=== PATIENT | female | born 1980 | race Caucasian/White ===

== ENCOUNTER 2016-09-15 13:35 | Emergency (ER) | payer OTHER ==
[2016-09-15 14:50] LABS: BASOPHIL 0.2 % (0-2); EOSINOPHIL 3.3 % (0-5); HCT 38.9 % (37.0-47.0); HGB 12.8 g/dl (12.5-16.0); LYMPHOCYTE 24.9 % (15-48); MCH 28.6 pg (25.0-31.0); MCHC 32.9 g/dL (32.0-36.0); MONOCYTE 7.8 % (0-12); MPV 9.4 fL (6.0-9.5); NEUTROPHIL 63.8 % (41-80); PLT 296 K/uL (150-400); RBC 4.47 M/uL (4.20-5.40); RDW 15.3 % (11.5-14.0); WBC 9.3 K/uL (4.0-10.5)
[2016-09-15 15:06] LABS: ALBUMIN 4.1 g/dL (3.5-5.0); BILIRUBIN - TOTAL 0.2 mg/dL (0.1-1.0); GLOBULIN (CALCULATION) 2.2 g/dL (2.2-4.2); POTASSIUM 4.2 mmol/L (3.5-5.1); TOTAL PROTEIN 6.3 g/dL (6.4-8.3)
[2016-09-15 15:12] LABS: BILIRUBIN NEGATIVE (NEGATIVE); BLOOD NEGATIVE Ery/uL (NEGATIVE); CLARITY CLEAR (CLEAR); COLOR YELLOW (YELLOW); GLUCOSE (U) NORMAL (NORMAL); KETONE (U) NEGATIVE (NEGATIVE); LEUKOCYTES TRACE Leu/uL (NEGATIVE); NITRITE NEGATIVE (NEGATIVE); PROTEIN NEGATIVE (NEGATIVE); SPECIFIC GRAVITY <=1.005 (1.001-1.030); UROBILINOGEN 0.2 mg/dL (0.2-1.0)
[2016-09-15 15:15] LABS: BACTERIA 1+; URINARY RBC RARE
[2016-09-15 15:17] LABS: AMPHETAMINES NEGATIVE (NEGATIVE); BENZODIAZEPINES POSITIVE (NEGATIVE); COCAINE NEGATIVE (NEGATIVE); MARIJUANA (THC) NEGATIVE (NEGATIVE); METHADONE NEGATIVE (NEGATIVE)
[2016-09-15 15:18] LABS: BARBITURATES NEGATIVE (NEGATIVE); TRICYCLIC ANTIDEPRESSANT POSITIVE (NEGATIVE)
== END 2016-09-15 15:43 | disposition home or self-care (01) ==
LOC: FER 13:35
PROVIDERS: Internal Medicine
DX: G40.409 Other generalized epilepsy and epileptic syndromes, not intractable, without status epilepticus (principal); F43.9 Reaction to severe stress, unspecified; F90.9 Attention-deficit hyperactivity disorder, unspecified type; F17.210 Nicotine dependence, cigarettes, uncomplicated; Z88.1 Allergy status to other antibiotic agents; Z88.2 Allergy status to sulfonamides; Z88.8 Allergy status to other drugs, medicaments and biological substances; Z91.041 Radiographic dye allergy status; Z91.09 Other allergy status, other than to drugs and biological substances
CPT/HCPCS: 36415; 80053; 80305; 81001; 85025; J1885; J2060

== ENCOUNTER 2020-10-19 14:53 | Emergency (ER) | payer OTHER ==
[~2020-10-19 14:53] MED LIST: KEFLEX250 MG PO; MACROBID100 MG PO
[2020-10-19] MEDS ORDERED: NAPROXEN500 MG PO (19:17)
[2020-10-19] MEDS ORDERED: FLEXERIL5 MG PO (19:17)
== END 2020-10-19 21:04 | disposition home or self-care (01) ==
LOC: FER 14:53
DX: S09.90XA Unspecified injury of head, initial encounter (principal); S46.911A Strain of unspecified muscle, fascia and tendon at shoulder and upper arm level, right arm, initial encounter; I10 Essential (primary) hypertension; J45.909 Unspecified asthma, uncomplicated; Z88.2 Allergy status to sulfonamides; Z88.8 Allergy status to other drugs, medicaments and biological substances; Z88.1 Allergy status to other antibiotic agents; W19.XXXA Unspecified fall, initial encounter; Y92.009 Unspecified place in unspecified non-institutional (private) residence as the place of occurrence of the external cause
CPT/HCPCS: 70450; 72125; 73030; 96372; J1100; J1885

== ENCOUNTER 2020-10-25 19:57 | Emergency (ER) | payer OTHER ==
[~2020-10-25 19:57] MED LIST changes: +FLEXERIL5 MG PO; +NAPROXEN500 MG PO
[2020-10-25 21:43] LABS: BASOPHIL 0.5 % (0-2); EOSINOPHIL 2.9 % (0-5); HCT 40.8 % (37.0-47.0); HGB 13.5 g/dl (12.5-16.0); MCH 28.1 pg (25.0-31.0); MCHC 33.1 g/dL (32.0-36.0); MCV 84.8 fL (78.0-100.0); MONOCYTE 8.4 % (0-12); MPV 9.5 fL (6.0-9.5); NEUTROPHIL 54.9 % (41-80); NRBC 0; PLT 326 K/uL (150-400); RBC 4.81 M/uL (4.20-5.40); WBC 11.3 K/uL (4.0-10.5)
[2020-10-25 21:52] LABS: ALBUMIN 3.6 g/dL (3.4-5.0); BILIRUBIN - TOTAL 0.2 mg/dL (0.2-1.0); BUN/CREAT RATIO (CALC) 15.3 RATIO; CREATININE 0.98 mg/dL (0.51-0.95); GLOBULIN (CALCULATION) 3.7 g/dL; MAGNESIUM 1.9 mg/dL (1.8-2.4); POTASSIUM 4.6 mmol/L (3.5-5.1); TOTAL PROTEIN 7.3 g/dL (6.4-8.2)
[2020-10-26] MEDS ORDERED: PERCOCET 5-3251 EACH PO (01:18)
== END 2020-10-26 01:30 | disposition home or self-care (01) ==
LOC: FER 19:57
PROVIDERS: Emergency Medicine Emergency Medical Services
DX: G40.409 Other generalized epilepsy and epileptic syndromes, not intractable, without status epilepticus (principal); M79.7 Fibromyalgia; F17.210 Nicotine dependence, cigarettes, uncomplicated; Z86.73 Personal history of transient ischemic attack (TIA), and cerebral infarction without residual deficits; Z85.9 Personal history of malignant neoplasm, unspecified; Z88.0 Allergy status to penicillin; Z88.2 Allergy status to sulfonamides; Z88.8 Allergy status to other drugs, medicaments and biological substances
CPT/HCPCS: 36415; 70450; 71045; 73030; 80053; 83735; 84484; 85025; 93005; J2060; J2270; J2405; J7030

== ENCOUNTER 2020-12-13 21:34 | Emergency (ER) | payer OTHER ==
[~2020-12-13 21:34] MED LIST changes: +PERCOCET 5-3251 EACH PO
[2020-12-13 23:04] LABS: BILIRUBIN NEGATIVE (NEGATIVE); BLOOD NEGATIVE Ery/uL (NEGATIVE); CLARITY CLEAR (CLEAR); COLOR YELLOW (YELLOW); GLUCOSE (U) NORMAL (NORMAL); LEUKOCYTES TRACE Leu/uL (NEGATIVE); NITRITE NEGATIVE (NEGATIVE); PROTEIN NEGATIVE (NEGATIVE); UROBILINOGEN 0.2 mg/dL (0.2-1.0)
[2020-12-13 23:11] LABS: BACTERIA TRACE; URINARY RBC RARE
[2020-12-13] MEDS ORDERED: CIPRO500 MG PO (23:41)
[2020-12-13] MEDS ORDERED: HYDROCODON-ACE1 EAC6 PO (23:41)
[2020-12-13] MEDS ORDERED: ATIVAN1 MG PO (23:41)
== END 2020-12-14 00:02 | disposition home or self-care (01) ==
LOC: FER 21:34
PROVIDERS: Emergency Medicine Emergency Medical Services
DX: G40.909 Epilepsy, unspecified, not intractable, without status epilepticus (principal); M54.2 Cervicalgia; G89.29 Other chronic pain; N39.0 Urinary tract infection, site not specified; J45.909 Unspecified asthma, uncomplicated; F17.200 Nicotine dependence, unspecified, uncomplicated; Z86.73 Personal history of transient ischemic attack (TIA), and cerebral infarction without residual deficits; Z85.828 Personal history of other malignant neoplasm of skin; Z88.2 Allergy status to sulfonamides; Z88.8 Allergy status to other drugs, medicaments and biological substances; Z91.040 Latex allergy status
CPT/HCPCS: 81001; 96372; 99284; J1100; J1170; J1885

== ENCOUNTER 2021-03-06 05:58 | Emergency (ER) | payer OTHER ==
[~2021-03-06 05:58] MED LIST changes: +ATIVAN1 MG PO; +CIPRO500 MG PO; +HYDROCODON-ACE1 EAC6 PO
[2021-03-06 07:33] LABS: BASOPHIL 0.3 % (0-2); EOSINOPHIL 2.8 % (0-5); HCT 39.1 % (37.0-47.0); HGB 12.4 g/dl (12.5-16.0); LYMPHOCYTE 24.1 % (15-48); MCH 27.4 pg (25.0-31.0); MCHC 31.7 g/dL (32.0-36.0); MCV 86.5 fL (78.0-100.0); MONOCYTE 5.4 % (0-12); MPV 9.2 fL (6.0-9.5); NEUTROPHIL 67.1 % (41-80); NRBC 0; PLT 284 K/uL (150-400); RBC 4.52 M/uL (4.20-5.40); RDW 14.4 % (11.5-14.0); WBC 9.3 K/uL (4.0-10.5)
[2021-03-06] MEDS ORDERED: ATIVAN1 MG PO (08:01)
[2021-03-06] MEDS ORDERED: CYCLOBENZAPRINE10 MG PO (08:01)
[2021-03-06] MEDS ORDERED: PERCOCET 7.5-31 EACH PO (08:01)
[2021-03-06 08:03] LABS: ALBUMIN 3.4 g/dL (3.4-5.0); BILIRUBIN - TOTAL 0.2 mg/dL (0.2-1.0); BUN/CREAT RATIO (CALC) 9.7 RATIO; CREATININE 0.72 mg/dL (0.51-0.95); GLOBULIN (CALCULATION) 3.6 g/dL; POTASSIUM 4.1 mmol/L (3.5-5.1)
== END 2021-03-06 08:15 | disposition home or self-care (01) ==
LOC: FER 05:58
PROVIDERS: Emergency Medicine Emergency Medical Services
DX: S30.0XXA Contusion of lower back and pelvis, initial encounter (principal); I10 Essential (primary) hypertension; R56.9 Unspecified convulsions; F17.210 Nicotine dependence, cigarettes, uncomplicated; Z88.8 Allergy status to other drugs, medicaments and biological substances; W01.10XA Fall on same level from slipping, tripping and stumbling with subsequent striking against unspecified object, initial encounter; Y92.009 Unspecified place in unspecified non-institutional (private) residence as the place of occurrence of the external cause
CPT/HCPCS: 36415; 70450; 72125; 72128; 72131; 80053; 84703; 85025; 96372; J1170; J1885; J2060; J2405; J3010; J3360

== ENCOUNTER 2021-07-21 02:25 | Emergency (ER) | payer OTHER ==
[~2021-07-21 02:25] MED LIST changes: +CYCLOBENZAPRINE10 MG PO; +PERCOCET 7.5-31 EACH PO
[2021-07-21] MEDS ORDERED: ATIVAN1 MG PO (05:18)
== END 2021-07-21 06:04 | disposition home or self-care (01) ==
LOC: FER 02:25
DX: G43.909 Migraine, unspecified, not intractable, without status migrainosus (principal); G89.29 Other chronic pain; M54.9 Dorsalgia, unspecified; R56.9 Unspecified convulsions; I25.2 Old myocardial infarction; F17.210 Nicotine dependence, cigarettes, uncomplicated; Z88.1 Allergy status to other antibiotic agents; Z88.2 Allergy status to sulfonamides; Z88.8 Allergy status to other drugs, medicaments and biological substances
CPT/HCPCS: 96372; 99283; J1100; J1170; J2060

== ENCOUNTER 2021-07-26 15:27 | Emergency (ER) | payer OTHER ==
[2021-07-26 18:14] LABS: BILIRUBIN NEGATIVE (NEGATIVE); BLOOD NEGATIVE Ery/uL (NEGATIVE); CLARITY CLEAR (CLEAR); COLOR YELLOW (YELLOW); GLUCOSE (U) NORMAL (NORMAL); LEUKOCYTES NEGATIVE Leu/uL (NEGATIVE); NITRITE NEGATIVE (NEGATIVE); PROTEIN NEGATIVE (NEGATIVE); UROBILINOGEN 0.2 mg/dL (0.2-1.0)
[2021-07-26 18:19] LABS: AMPHETAMINES POSITIVE (NEGATIVE); BARBITURATES NEGATIVE (NEGATIVE); ECSTASY (MDMA) NEGATIVE (NEGATIVE); MARIJUANA (THC) NEGATIVE (NEGATIVE); METHADONE NEGATIVE (NEGATIVE); OPIATES POSITIVE (NEGATIVE); OXYCODONE NEGATIVE (NEGATIVE)
[2021-07-26 18:37] LABS: BASOPHIL 0.3 % (0-2); EOSINOPHIL 2.7 % (0-5); HCT 39.4 % (37.0-47.0); HGB 12.3 g/dl (12.5-16.0); LYMPHOCYTE 30.1 % (15-48); MCH 26.5 pg (25.0-31.0); MCHC 31.2 g/dL (32.0-36.0); MCV 84.7 fL (78.0-100.0); MONOCYTE 6.2 % (0-12); MPV 9.5 fL (6.0-9.5); NEUTROPHIL 60.2 % (41-80); NRBC 0; PLT 424 K/uL (150-400); RBC 4.65 M/uL (4.20-5.40); RDW 15.7 % (11.5-14.0); WBC 11.5 K/uL (4.0-10.5)
[2021-07-26 18:55] LABS: ALBUMIN 3.8 g/dL (3.4-5.0); BILIRUBIN - TOTAL 0.3 mg/dL (0.2-1.0); BUN/CREAT RATIO (CALC) 9.8 RATIO; CREATININE 0.82 mg/dL (0.51-0.95); GLOBULIN (CALCULATION) 3.3 g/dL; POTASSIUM 4.1 mmol/L (3.5-5.1); TOTAL PROTEIN 7.1 g/dL (6.4-8.2)
== END 2021-07-26 20:01 | disposition home or self-care (01) ==
LOC: FER 15:27
PROVIDERS: Nurse Practitioner Family
DX: S02.32XA Fracture of orbital floor, left side, initial encounter for closed fracture (principal); Z88.2 Allergy status to sulfonamides; Z88.8 Allergy status to other drugs, medicaments and biological substances; W19.XXXA Unspecified fall, initial encounter
CPT/HCPCS: 36415; 70450; 70486; 72125; 80053; 80305; 81003; 84484; 85025; 93005; J1170